=== PATIENT | male | born 1980 | race Caucasian/White ===

== ENCOUNTER 2022-07-03 01:41 | Emergency (ER) | payer OTHER ==
[2022-07-03] MEDS ORDERED: ORPHENADRINE 30 MG/ML 2 ML VIAL IM STA (02:25)
--- NOTE | 2022-07-03 02:33 | ED ---
General Adult HPI - General Chief complaint: Neck Pain/Injury Stated complaint: Neck pain, Right Arm Pain Time Seen by Provider: 07/03/22 02:11 Source: police, RN notes reviewed Mode of arrival: wheelchair Limitations: no limitations - History of Present Illness Initial comments: 41-year-old male presents to the emergency Department with complaints of e levated blood pressure. Reports high blood pressure throughout the day. Was given blood pressure medication which initially appeared to merit no success. Upon arrival, patient's pressure is found to be 188/122. States he has had high blood pressure his whole life, though not typically this elevated. He is taking Lisinopril and Hydrochlorothiazide; was given Catapress per medical staff at the [facility]. Is not experiencing any chest pain, pressure, or tightness. Does complain of right shoulder pain that radiates to the neck and arm. Patient states pain began Monday afternoon and has persisted. States arm feels better when raised in a position of comfort. Worsens with palpation. Describes quality of pain as sharp and burning in nature. Denies any injury, trauma, or fall. No loss of sen sation or strength. Denies headache, dizziness, blurry vision, diaphoresis, chest pain, shortness of breath, abdominal pain, nausea, vomiting, diarrhea, dysuria. - Related Data Allergies Allergy/AdvReac Type Severity Reaction Status Date / Time No Known Allergies Allergy Verified 07/03/22 01:58 Review of Systems ROS Statement: Those systems with pertinent positive or pertinent negative responses have been documented in the HPI. ROS Other: All systems not noted in ROS Statement are negative. Past Medical History Past Medical History: Hypertension History of Any Multi-Drug Resistant Organisms: None Reported Past Surgical History: No Surgical Hx Reported Past Psychological History: No Psychological Hx Reported Smoking Status: Never smoker Past Alcohol Use History: None Reported Past Drug Use History: None Reported General Exam Limitations: no limitations General appearance: alert, in no apparent distress Eye exam: Present: normal appearance, PERRL, EOMI. Absent: scleral icterus, conjunctival injection, periorbital swelling Neck exam: Present: normal inspection, tenderness (mild tenderness upon palpation of the right posterolateral aspect of the neck along the trapezius), full ROM. Absent: lymphadenopathy Respiratory exam: Present: normal lung sounds bilaterally. Absent: respiratory distress, wheezes, rales, rhonchi, stridor, chest wall tenderness Cardiovascular Exam: Present: regular rate, normal rhythm, normal heart sounds. Absent: systolic murmur, diastolic murmur, rubs, gallop, clicks GI/Abdominal exam: Present: soft, normal bowel sounds. Absent: distended, tenderness, guarding, rebound, rigid Extremities exam: Present: normal inspection, full ROM, tenderness (tenderness upon palpation of trapezius and deltoid, RUE), normal capillary refill. Absent: pedal edema, joint swelling, calf tenderness Right General: Present: normal inspection Neurosensory exam: Present: other (sensation intact) Vascular: Present: normal capillary refill, radial pulse, brachial pulse. Absent: vascular compromise, Pallo Neurological exam: Present: alert, oriented X3, CN II-XII intact, normal gait Expanded Patient oriented to: Present: person, place, time Speech: Present: fluid speech Motor strength exam: RUE: 5, LUE: 5 Eye Response: (4) open spontaneously Motor Response: (6) obeys commands Verbal Response: (5) oriented [place] Total: 15 Psychiatric exam: Present: normal affect, normal mood Skin exam: Present: warm, dry, intact, normal color. Absent: rash Course Vital Signs 07/03/22 07/03/22 07/03/22 01:59 02:09 03:30 Temperature 97.4 F L 97.9 F Pulse Rate 75 83 Respiratory 18 18 16 Rate Blood Pressure 188/122 183/101 O2 Sat by Pulse 97 98 Oximetry - Reevaluation(s) Reevaluation #1: 07/03/22 04:00 Results discussed with patient. Upon reassessment, patient's blood pressure remains elevated though improved from earlier in the day. His right shoulder is feeling improved; discussed symptomatic management. He is encouraged to make lifestyle changes to augment his medication regimen. Instructed to monitor blood pressure. Will be discharged. Medical Decision Making - Medical Decision Making 41-year-old male with a past medical history of hypertension presents to the emergency department for evaluation of hypertensive urgency. Upon exam, patient is well-appearing and in no acute distress. He has no neurological deficits. He does complain of radiating right shoulder pain which is reproducible. Patient is not experiencing any chest pain, tightness, pressure, or difficulty breathing. However given his age, BMI, and his history of hypertension, EKG and laboratory studies were obtained. EKG shows chronic changes associated with left ventricular hypertrophy, but no evidence of ischemic changes. Laboratory studies include negative troponin and normal renal function. Discussed antihypertensive medication regimen and lifestyle changes to facilitate better management of hypertension. Patient states his blood pressure will be monitored by medical staff at the sn[facility] a few times daily. Discussed return parameters including chest pain, difficulty breathing, and neurological symptoms. Patient verbalizes understanding and agrees with this plan. Attending: Poli. - Lab Data Result diagrams: 07/03/22 02:50 07/03/22 02:50 Lab Results 07/03/22 07/03/22 07/03/22 Range/Units 02:50 02:50 02:50 WBC 12.8 H (3.8-10.6) k/uL RBC 5.30 (4.30-5.90) m/uL Hgb 15.0 (13.0-17.5) gm/dL Hct 43.7 (39.0-53.0) % MCV 82.4 (80.0-100.0) fL MCH 28.3 (25.0-35.0) pg MCHC 34.3 (31.0-37.0) g/dL RDW 14.3 (11.5-15.5) % Plt Count 154 (150-450) k/uL MPV 10.5 Neutrophils % 64 % Lymphocytes % 28 % Monocytes % 3 % Eosinophils % 3 % Basophils % 0 % Neutrophils # 8.2 H (1.3-7.7) k/uL Lymphocytes # 3.6 (1.0-4.8) k/uL Monocytes # 0.4 (0-1.0) k/uL Eosinophils # 0.3 (0-0.7) k/uL Basophils # 0.1 (0-0.2) k/uL Sodium 138 (137-145) mmol/L Potassium 4.0 (3.5-5.1) mmol/L Chloride 101 (98-107) mmol/L Carbon Dioxide 29 (22-30) mmol/L Anion Gap 8 mmol/L BUN 19 (9-20) mg/dL Creatinine 1.08 (0.66-1.25) mg/dL Est GFR (CKD-EPI)AfAm >90 (>60 ml/min/1.73 sqM) Est GFR (CKD-EPI)NonAf 85 (>60 ml/min/1.73 sqM) Glucose 161 H (74-99) mg/dL Calcium 9.3 (8.4-10.2) mg/dL Total Bilirubin 0.5 (0.2-1.3) mg/dL AST 26 (17-59) U/L ALT 29 (4-49) U/L Alkaline Phosphatase 126 (38-126) U/L Troponin I <0.012 (0.000-0.034) ng/mL Total Protein 7.7 (6.3-8.2) g/dL Albumin 4.7 (3.5-5.0) g/dL - EKG Data EKG shows normal: sinus rhythm Rate: normal EKG Comments: EKG obtained at 0252 shows sinus rhythm with left ventricular hypertrophy and ST changes. Ventricular rate 72, ME interval 187, QRS duration 101, QT/QTc 400/424. Interpretation abnormal ECG. EKG shows no evidence of ischemic changes. Disposition Clinical Impression: Hypertension, Shoulder pain, right Disposition: HOME SELF-CARE Condition: Stable Instructions (If sedation given, give patient instructions): Chronic Hypertension (ED), Low-Sodium Diet (ED) Additional Instructions: Continue antihypertensive medications as prescribed. Incorporate dietary changes such as low sodium and avoid caffeine. Follow-up for a recheck of blood pressure in 48 hours. Return to the emergency department with any new, worsening, or concerning symptoms. Is patient prescribed a controlled substance at d/c from ED?: No Referrals: None,Stated [Primary Care Provider] - 1-2 days Time of Disposition: 03:58
[2022-07-03 03:00] LABS: Basophils # (A) 0.1 k/uL (0-0.2); Basophils % (A) 0 %; Eosinophils # (A) 0.3 k/uL (0-0.7); Eosinophils % (A) 3 %; HCT 43.7 % (39.0-53.0); Lymphocytes # (A) 3.6 k/uL (1.0-4.8); Lymphocytes % (A) 28 %; MCH 28.3 pg (25.0-35.0); MCHC 34.3 g/dL (31.0-37.0); MCV 82.4 fL (80.0-100.0); Mean Platelet Volume 10.5; Monocytes # (A) 0.4 k/uL (0-1.0); Monocytes % (A) 3 %; Neutrophils # (A) 8.2 k/uL (1.3-7.7); Neutrophils % (A) 64 %; Platelet Count 154 k/uL (150-450); RDW 14.3 % (11.5-15.5); WBC 12.8 k/uL (3.8-10.6)
[2022-07-03 03:15] LABS: ALT 29 U/L (4-49); AST 26 U/L (17-59); African American GFR (CKD) >90 (>60 ml/min/1.73 sqM); Albumin 4.7 g/dL (3.5-5.0); Alkaline Phosphatase 126 U/L (38-126); Anion Gap 8 mmol/L; Blood Urea Nitrogen 19 mg/dL (9-20); Calcium 9.3 mg/dL (8.4-10.2); Carbon Dioxide 29 mmol/L (22-30); Chloride 101 mmol/L (98-107); Glucose 161 mg/dL (74-99); Non-African American GFR(CKD) 85 (>60 ml/min/1.73 sqM); Sodium 138 mmol/L (137-145); Total Bilirubin 0.5 mg/dL (0.2-1.3); Total Protein 7.7 g/dL (6.3-8.2)
[2022-07-03 03:30] VITALS: BP 183/101; PULSE 83; RESP 16; TEMP 97.9
== END 2022-07-03 04:04 | disposition home or self-care (01) ==
LOC: EC 01:41
DX: I10 Essential (primary) hypertension (principal); M25.511 Pain in right shoulder
CPT/HCPCS: 99284; 96372; 36415; 93005; 80053; 84484; 85025; J2360

== ENCOUNTER 2022-07-18 20:42 | Emergency (ER) | payer OTHER ==
[2022-07-18 20:45] VITALS: RESP 18; TEMP 97.8
[2022-07-19 00:17] LABS: Basophils # (A) 0.1 k/uL (0-0.2); Basophils % (A) 1 %; Eosinophils # (A) 0.3 k/uL (0-0.7); Eosinophils % (A) 3 %; HCT 42.3 % (39.0-53.0); HGB 14.4 gm/dL (13.0-17.5); Lymphocytes # (A) 2.4 k/uL (1.0-4.8); Lymphocytes % (A) 25 %; MCH 28.3 pg (25.0-35.0); MCV 83.3 fL (80.0-100.0); Mean Platelet Volume 9.9; Monocytes # (A) 0.5 k/uL (0-1.0); Monocytes % (A) 5 %; Neutrophils # (A) 6.1 k/uL (1.3-7.7); Neutrophils % (A) 64 %; Platelet Count 173 k/uL (150-450); RBC 5.08 m/uL (4.30-5.90); RDW 14.4 % (11.5-15.5); WBC 9.6 k/uL (3.8-10.6)
[2022-07-19] MEDS ORDERED: hydrALAZINE HCL 20 MG/ML 1 ML VIAL IM STA (00:19)
--- NOTE | 2022-07-19 00:24 | ED ---
General Adult HPI - General Chief complaint: Recheck/Abnormal Lab/Rx Stated complaint: hypertension Time Seen by Provider: 07/18/22 23:48 Source: patient Mode of arrival: ambulatory Limitations: no limitations - History of Present Illness Initial comments: Dictation was produced using [employer] dictation software. please excuse any grammatical, word or spelling errors. Chief Complaint: 41-year-old male presents emergency Department with hypertension History of Present Illness: 41-year-old male with past medical history of hypertension presents to the emergency department for hypertension. Patient states he is feeling slightly anxious. He was released from senior living and has not had blood pressure medications for just over 1 week. He states that he was in a cobble hydrochlorothiazide lisinopril medication. He does not know what his dosages are. He does have established care primary care doctor hours have not followed up yet. Patient denies any headache. No chest pain or shortness of breath. Denies any numbness to and paresthesias to the extremities. The ROS documented in this emergency department record has been reviewed and confirmed by me. Those systems with pertinent positive or negative responses have been documented in the HPI. All other systems are other negative and/or noncontributory. PHYSICAL EXAM: General Impression: Alert and oriented x3, not in acute distress HEENT: Normocephalic atraumatic, extra-ocular movements intact, pupils equal and reactive to light bilaterally, mucous membranes moist. Cardiovascular: Heart regular rate and rhythm Chest: Able to complete full sentences, no retractions, no tachypnea Abdomen: abdomen soft, non-tender, non-distended, no organomegaly Musculoskeletal: Pulses present and equal in all extremities, no peripheral edema Motor: no focal deficits noted Neurological: CN II-XII grossly intact, no focal motor or sensory deficits noted Skin: Intact with no visualized rashes Psych: Normal affect and mood ED course: 41-year-old well-appearing male presents emergency department with clinical presentation consistent with asymptomatic hypertension. He has es tablished diagnosis of hypertension and has not had any of his blood pressure medications for over a week. All signs upon arrival shows blood pressure 199/130, rest of vital signs within acceptable limits. He has no symptoms of hypertensive emergency. Nursing notes and chart review was performed Laboratory evaluation obtained. CBC metabolic panel is unremarkable. Patient given dose of hydralazine and observed in emergency department for several minutes. We do not have pharmacy technicians at this time that can confirm sake and dosing of patient's medications. Patient reevaluated at bedside at 2:25 PM found with stable medical condition. Patient states that he still has his medications at home. He is advised to take his blood pressure medications as prescribed and follow-up with his primary care doctor soon as possible for management of his hypertension. EKG interpreted by me: Ventricular rate 73, sinus rhythm,. 160, QRS 90, QTC 4:15. No MA prolongation, no QTC prolongation, no ST or T-wave changes noted. . Overall, this EKG is unremarkable - Related Data Allergies Allergy/AdvReac Type Severity Reaction Status Date / Time No Known Allergies Allergy Verified 07/18/22 20:45 Review of Systems ROS Statement: Those systems with pertinent positive or pertinent negative responses have been documented in the HPI. ROS Other: All systems not noted in ROS Statement are negative. Past Medical History Past Medical History: Hypertension History of Any Multi-Drug Resistant Organisms: None Reported Past Surgical History: No Surgical Hx Reported Past Psychological History: No Psychological Hx Reported Smoking Status: Never smoker Past Alcohol Use History: None Reported Past Drug Use History: None Reported General Exam Limitations: no limitations Course Vital Signs 07/18/22 07/19/22 07/19/22 20:43 00:10 01:13 Temperature 97.8 F Pulse Rate 88 85 76 Respiratory 18 18 18 Rate Blood Pressure 243/115 199/130 186/123 O2 Sat by Pulse 96 97 98 Oximetry Medical Decision Making - Lab Data Result diagrams: 07/19/22 00:05 07/19/22 00:05 Lab Results 07/19/22 07/19/22 Range/Units 00:05 00:05 WBC 9.6 (3.8-10.6) k/uL RBC 5.08 (4.30-5.90) m/uL Hgb 14.4 (13.0-17.5) gm/dL Hct 42.3 (39.0-53.0) % MCV 83.3 (80.0-100.0) fL MCH 28.3 (25.0-35.0) pg MCHC 34.0 (31.0-37.0) g/dL RDW 14.4 (11.5-15.5) % Plt Count 173 (150-450) k/uL MPV 9.9 Neutrophils % 64 % Lymphocytes % 25 % Monocytes % 5 % Eosinophils % 3 % Basophils % 1 % Neutrophils # 6.1 (1.3-7.7) k/uL Lymphocytes # 2.4 (1.0-4.8) k/uL Monocytes # 0.5 (0-1.0) k/uL Eosinophils # 0.3 (0-0.7) k/uL Basophils # 0.1 (0-0.2) k/uL Sodium 141 (137-145) mmol/L Potassium 3.9 (3.5-5.1) mmol/L Chloride 108 H (98-107) mmol/L Carbon Dioxide 24 (22-30) mmol/L Anion Gap 9 mmol/L BUN 18 (9-20) mg/dL Creatinine 0.91 (0.66-1.25) mg/dL Est GFR (CKD-EPI)AfAm >90 (>60 ml/min/1.73 sqM) Est GFR (CKD-EPI)NonAf >90 (>60 ml/min/1.73 sqM) Glucose 112 H (74-99) mg/dL Calcium 9.0 (8.4-10.2) mg/dL Disposition Clinical Impression: Hypertension Disposition: HOME SELF-CARE Condition: Good Is patient prescribed a controlled substance at d/c from ED?: No Referrals: Ruben Richard MD [Primary Care Provider] - 1-2 days Time of Disposition: 02:25
[2022-07-19 00:27] LABS: African American GFR (CKD) >90 (>60 ml/min/1.73 sqM); Anion Gap 9 mmol/L; Blood Urea Nitrogen 18 mg/dL (9-20); Carbon Dioxide 24 mmol/L (22-30); Chloride 108 mmol/L (98-107); Glucose 112 mg/dL (74-99); Non-African American GFR(CKD) >90 (>60 ml/min/1.73 sqM); Potassium 3.9 mmol/L (3.5-5.1); Sodium 141 mmol/L (137-145)
[2022-07-19] MEDS ORDERED: hydrALAZINE HCL 20 MG/ML 1 ML VIAL IVP STA (02:25)
[2022-07-19] MEDS ORDERED: hydrALAZINE HCL 20 MG/ML 1 ML VIAL IV STA (02:30)
[2022-07-19 02:41] VITALS: BP 203/122; PULSE 83
== END 2022-07-19 02:43 | disposition home or self-care (01) ==
LOC: EC 20:42
DX: I10 Essential (primary) hypertension (principal)
CPT/HCPCS: 99283; 36415; 93005; 80048; 85025; 96374; 96372; J0360